=== PATIENT | male | born 1970 ===

== ENCOUNTER 2017-03-25 16:20 | Inpatient (IN) | payer OTHER ==
[2017-03-25 18:14] VITALS: BMI 26.9
--- NOTE | 2017-03-25 19:31 | CP.PCM.HP ---
History of Present Illness - History of Present Illness History of Present Illness: 47 yo male with history of Crohn's Disease, DM2 and Rheumatoid Arthritis was admitted at [facility] on 03/07/2017 diagnosed with Pneumonia presenting with 3 week history of coughing accompanied with fever and chills. Chest CT showed pulmonary nodules on right UL, ML and LL. He was started on IV antibiotics and did well. He was transferred to TCU for continuation of IV Azactam and Zyvox. Patient had CT guided lung biopsy of the right nodule which was read as Focal Organizing Pneumonitis. Present on Admission - Present on Admission Any Indicators Present on Admission: No History of DVT/PE: No History of Uncontrolled Diabetes: No Urinary Catheter: No Decubitus Ulcer Present: No Review of Systems - Review of Systems All systems: reviewed and no additional remarkable complaints except (aside from those mentioned above, 12 point system review were negative by me) Past Patient History - Infectious Disease Hx of Infectious Diseases: None - Tetanus Immunizations Tetanus Immunization: Unknown - Past Medical History & Family History Past Medical History?: Yes Pertinent Family History: Father has DM2 - Past Social History Smoking Status: Light Smoker < 10 Cigarettes Daily Alcohol: None Drugs: Denies Home Situation {Lives}: With Family - CARDIAC Hx Cardiac Disorders: No - PULMONARY Hx Bronchitis: Yes (PULMONARY LESION ) Hx Chronic Obstructive Pulmonary Disease (COPD): No Hx Pneumonia: Yes (NOVEMBER 2015) - NEUROLOGICAL Hx Neurological Disorder: No - HEENT Hx HEENT Problems: Yes Hx Cataracts: Yes (RIGHT EYE) - RENAL Hx Chronic Kidney Disease: No - ENDOCRINE/METABOLIC Hx Endocrine Disorders: Yes Hx Diabetes Mellitus Type 2: Yes - HEMATOLOGICAL/ONCOLOGICAL Hx Anemia: Yes - INTEGUMENTARY Hx Dermatological Problems: Yes Hx Cellulitis: Yes - MUSCULOSKELETAL/RHEUMATOLOGICAL Hx Arthritis: Yes Hx Falls: No Hx Fractures: Yes (LEFT ELBOW-CASTED ONLY) Hx Rheumatoid Arthritis: Yes - GASTROINTESTINAL Hx Crohn's Disease: Yes Hx Gastritis: Yes - GENITOURINARY/GYNECOLOGICAL Hx Genitourinary Disorders: No - PSYCHIATRIC Hx Psychophysiologic Disorder: No Hx Substance Use: No - SURGICAL HISTORY Hx Cholecystectomy: Yes - ANESTHESIA Hx Anesthesia: Yes Hx Anesthesia Reactions: No Hx Malignant Hyperthermia: No Meds Allergies/Adverse Reactions: Allergies Allergy/AdvReac Type Severity Reaction Status Date / Time No Known Allergies Allergy Verified 03/25/17 18:13 Physical Exam - Constitutional Appears: No Acute Distress - Head Exam Head Exam: ATRAUMATIC - Eye Exam Eye Exam: absent: Scleral icterus - ENT Exam ENT Exam: Mucous Membranes Moist - Neck Exam Neck exam: Negative for: Meningismus - Respiratory Exam Respiratory Exam: absent: Rhonchi, Wheezes, Respiratory Distress - Cardiovascular Exam Cardiovascular Exam: REGULAR RHYTHM, +S1, +S2 - GI/Abdominal Exam GI & Abdominal Exam: Soft. absent: Tenderness - Rectal Exam Rectal Exam: Deferred - Extremities Exam Extremities exam: Negative for: calf tenderness, pedal edema - Back Exam Back exam: NORMAL INSPECTION - Neurological Exam Neurological exam: Alert, Oriented x3 - Psychiatric Exam Psychiatric exam: Normal Affect - Skin Skin Exam: Dry, Intact Assessment & Plan (1) Pneumonia Status: Acute Comment: admit in TCU. Azactam 2gm IV q 8hrs. Zyvox 600mg IV q 12hrs. follow up consult with Dr Arana (2) Crohn's disease of colon Status: Chronic Comment: continue Azathioprine 50mg PO daily (3) DM2 (diabetes mellitus, type 2) Status: Acute Comment: Levemir 50 units SC HS. accuchek ACHS. HgA1C, BMP in am. diabetic diet (4) Rheumatoid arthritis Status: Acute Comment: Tramadol 50mg PO TID. on Azathioprine 50mg PO daily. refer to PT/OT for evaluation and management
[2017-03-25] MEDS ORDERED: Promethazine 6.25 MG/5 ML CUP PO SCH (20:00)
[2017-03-25] MEDS ORDERED: Aztreonam 2 Gm Inj IVPB SCH (20:00)
[2017-03-25] MEDS ORDERED: Aztreonam 2 GM in Sodium Chloride 0.9% 100 ML IVPB SCH (20:15)
[2017-03-25] MEDS ORDERED: Patient's Own Med (Linezolid 600 Mg In D5w 300 Ml [Zyvox 600mg/300ml D5w] 600 MG) IVPB SCH (21:00)
[2017-03-25] MEDS: Insulin Detemir 100 Units/ml Inj SC SCH (21:21)
[2017-03-25] MEDS ORDERED: CARISOPRODOL 350 MG PO SCH (22:00)
[2017-03-25] MEDS: Insulin Regular 100 units/ml SC SCH (22:02)
[2017-03-25 22:08] VITALS: RESP 20
[2017-03-25] MEDS: Linezolid 600 mg in D5W 300 ml 600 MG/300 ML BAG IVPB SCH (22:51)
[2017-03-26] MEDS: Promethazine 6.25 MG/5 ML CUP PO SCH ×4 (04:29→21:31)
[2017-03-26] MEDS: Aztreonam 2 GM in Sodium Chloride 0.9% 100 ML IVPB SCH ×3 (04:33→20:16)
[2017-03-26] MEDS: Insulin Regular 100 units/ml SC SCH ×4 (06:51→21:27)
[2017-03-26 07:26] LABS: BASO # 0.1 K/uL (0.0-0.2); BASO % 1.4 % (0.0-2.0); EOS # 0.2 K/uL (0.0-0.7); EOS % 2.6 % (0.0-4.0); HEMOGLOBIN 10.9 g/dL (12.0-18.0); LYMPH # 1.7 K/uL (1.0-4.3); LYMPH % 19.8 % (20.0-40.0); MEAN CELL VOLUME 85.5 fl (80.0-94.0); MEAN CORPUSCULAR HEMOGLOBIN 28.8 pg (27.0-31.0); MEAN CORPUSCULAR HGB CONC 33.6 g/dL (33.0-37.0); MEAN PLATELET VOLUME 7.3 fl (7.2-11.7); MONO # 0.5 K/uL (0.0-0.8); MONO % 6.2 % (0.0-10.0); NEUT # 5.9 K/uL (1.8-7.0); RBC 3.77 Mil/uL (4.40-5.90); RED CELL DISTRIBUTION WIDTH 13.2 % (11.5-14.5); WHITE BLOOD COUNT 8.4 K/uL (4.8-10.8)
[2017-03-26 07:40] LABS: BLOOD UREA NITROGEN 15 mg/dl (9-20); CALCIUM 8.7 mg/dL (8.4-10.2); GFR AFRICAN-AMERICAN > 60; GFR NON-AFRICAN AMERICAN 50
[2017-03-26] MEDS ORDERED: Patient's Own Med (Multivitamin/Iron/Folic Acid [Centrum Complete Multivit Tab] 1 TAB) PO SCH (09:00)
[2017-03-26] MEDS ORDERED: PREGABALIN 75 MG PO SCH (09:00)
[2017-03-26] MEDS ORDERED: VITAMIN B COMPLEX PO SCH (09:00)
[2017-03-26] MEDS ORDERED: NEPAFENAC OD SCH (09:00)
[2017-03-26] MEDS: Pantoprazole 40 mg EC Tab PO SCH (09:31)
[2017-03-26] MEDS: Multivitamin Vitamin B Complex (Nephro-Vite) Tab PO SCH (09:31)
[2017-03-26] MEDS: Linezolid 600 mg in D5W 300 ml 600 MG/300 ML BAG IVPB SCH ×2 (09:32→21:28)
--- NOTE | 2017-03-26 12:36 | CP.PCM.CON ---
History of Present Illness - History of Present Illness History of Present Illness: 47 yo male with history of Crohn's Disease, DM2 and Rheumatoid Arthritis was admitted at [facility] on 03/07/2017 diagnosed with Pneumonia presenting with 3 week history of coughing accompanied with fever and chills. Chest CT showed pulmonary nodules on right UL, ML and LL. He was started on IV antibiotics and did well. He was transferred to TCU for continuation of IV Azactam and Zyvox. Patient had CT guided lung biopsy of the right nodule which was read as Focal Organizing Pneumonitis. Review of Systems - Review of Systems All systems: reviewed and no additional remarkable complaints except - Constitutional Constitutional: As Per HPI - EENT Eyes: absent: As Per HPI, Blind Spots, Blurred Vision, Change in Vision, Decreased Night Vision, Diplopia, Discharge, Dry Eye, Exophthalmos, Floaters, Irritation, Itchy Eyes, Loss of Peripheral Vision, Pain, Photophobia, Requires Corrective Lenses, Sees Flashes, Spots in Vision, Tunnel Vision, Other Visual Disturbances, Loss of Vision, Other Ears: absent: As Per HPI, Decreased Hearing, Ear Discharge, Ear Pain, Tinnitus, Abnormal Hearing, Disequilibrium, Dizziness, Other Nose/Mouth/Throat: absent: As Per HPI, Epistaxis, Nasal Congestion, Nasal Discharge, Nasal Obstruction, Nasal Trauma, Nose Pain, Post Nasal Drip, Sinus Pain, Sinus Pressure, Bleeding Gums, Change in Voice, Dental Pain, Dry Mouth, Dysphagia, Halitosis, Hoarsness, Lip Swelling, Mouth Lesions, Mouth Pain, Odynophagia, Sore Throat, Throat Swelling, Tongue Swelling, Facial Pain, Neck Pain, Neck Mass, Other - Cardiovascular Cardiovascular: absent: As Per HPI, Acrocyanosis, Chest Pain, Chest Pain at Rest , Chest Pain with Activity, Claudication, Diaphoresis, Dyspnea, Dyspnea on Exertion, Edema, Irregular Heart Rhythm, Pain Radiating to Arm/Neck/Jaw, Leg Edema, Leg Ulcers, Lightheadedness, Orthopnea, Palpitations, Paroxysmal Nocturnal Dyspnea, Pedal Edema, Radiating Pain, Rapid Heart Rate, Slow Heart Rate, Syncope, Other - Respiratory Respiratory: As Per HPI, Cough - Gastrointestinal Gastrointestinal: As Per HPI - Genitourinary Genitourinary: absent: As Per HPI, Change in Urinary Stream, Difficulty Urinating, Dysuria, Flank Pain, Hematuria, Pyuria, Nocturia, Urinary Incontinence, Urinary Frequency, Urinary Hesitance, Urinary Urgency, Voiding Freq/Small Amts, Freq UTI, Hx Renal/Bladder Calculi, Hx /Renal Surgery, Bladder Distension, Other - Musculoskeletal Musculoskeletal: absent: As Per HPI, Abnormal Gait, Arthralgias, Atrophy, Back Pain, Deformity, Joint Swelling, Limited Range of Motion, Loss of Height, Muscle Cramps, Muscle Weakness, Myalgias, Neck Pain, Numbness, Radiating Pain into Limb, Stiffness, Tingling, Other - Integumentary Integumentary: absent: As Per HPI, Acne, Alopecia, Bleeding Lesions, Change in Hair, Change in Nails, Change in Pigmentation, Changing Lesions, Dry Skin, Erythema, Furuncle, Hirsutism, Lesions, New Lesions, Non-Healing Lesions, Photosensitivity, Pruritus, Rash, Skin Pain, Skin Ulcer, Sores, Striae, Swelling , Unusual Bruising, Wounds, Jaundice, Other - Neurological Neurological: absent: As Per HPI, Abnormal Gait, Abnormal Hearing, Abnormal Movements, Abnormal Speech, Behavioral Changes, Burning Sensations, Confusion, Convulsions, Disequilibrium, Dizziness, Numbness, Focal Weakness, Frequent Falls , Headaches, Lack of Coordination, Loss of Vision, Memory Loss, Paresthesias, Radicular Pain, Restless Legs, Sensory Deficit, Syncope, Tingling, Tremor, Vertigo, Weakness, Other Visual Disturbances, Other - Psychiatric Psychiatric: absent: As Per HPI, Abnormal Sleep Pattern, Anhedonia, Anxiety, Auditory Hallucinations, Behavioral Changes, Change in Appetite, Change in Libido, Confusion, Depression, Difficulty Concentrating, Hallucinations, Homicidal Ideation, Hopelessness, Irritability, Memory Loss, Mood Swings, Panic Attacks, Paranoia, Suicidal Ideation, Visual Hallucinations, Tactile Hallucinations, Other - Endocrine Endocrine: absent: As Per HPI, Change in Body Appearance, Change in Libido, Cold Intolorance, Deepening of Voice, Excessive Sweating, Fatigue, Flushing, Heat Intolorance, Increase in Ring/Shoe/Hat Size, Palpitations, Polydipsia, Polyphagia, Polyuria, Other - Hematologic/Lymphatic Hematologic: absent: As Per HPI, Easy Bleeding, Easy Bruising, Lymphadenopathy, Other Past Patient History - Infectious Disease Hx of Infectious Diseases: None - Tetanus Immunizations Tetanus Immunization: Unknown - Past Medical History & Family History Past Medical History?: Yes - Past Social History Smoking Status: Light Smoker < 10 Cigarettes Daily - CARDIAC Hx Cardiac Disorders: No Hx Hypertension: Yes - PULMONARY Hx Bronchitis: Yes (PULMONARY LESION ) Hx Chronic Obstructive Pulmonary Disease (COPD): No Hx Pneumonia: Yes (NOVEMBER 2015) - NEUROLOGICAL Hx Neurological Disorder: No - HEENT Hx HEENT Problems: Yes Hx Cataracts: Yes (RIGHT EYE) - RENAL Hx Chronic Kidney Disease: No - ENDOCRINE/METABOLIC Hx Endocrine Disorders: Yes Hx Diabetes Mellitus Type 2: Yes - HEMATOLOGICAL/ONCOLOGICAL Hx AIDS: No Hx Anemia: Yes Hx Blood Transfusions: Yes Hx Blood Transfusion Reaction: No Hx Human Immunodeficiency Virus (HIV): No - INTEGUMENTARY Hx Dermatological Problems: Yes Hx Cellulitis: Yes - MUSCULOSKELETAL/RHEUMATOLOGICAL Hx Arthritis: Yes Hx Falls: No Hx Fractures: Yes (LEFT ELBOW-CASTED ONLY) Hx Rheumatoid Arthritis: Yes - GASTROINTESTINAL Hx Crohn's Disease: Yes Hx Gastritis: Yes - GENITOURINARY/GYNECOLOGICAL Hx Genitourinary Disorders: No - PSYCHIATRIC Hx Psychophysiologic Disorder: No Hx Substance Use: No - SURGICAL HISTORY Hx Cholecystectomy: Yes - ANESTHESIA Hx Anesthesia: Yes Hx Anesthesia Reactions: No Hx Malignant Hyperthermia: No Meds Allergies/Adverse Reactions: Allergies Allergy/AdvReac Type Severity Reaction Status Date / Time No Known Allergies Allergy Verified 03/25/17 18:13 - Medications Medications: Current Medications Azathioprine (Imuran) 50 mg PO DAILY [facility] Last Admin: 03/26/17 09:32 Dose: 50 mg Home Med (Carisoprodol [Soma]) 350 mg PO [facility] Home Med (Nepafenac [Ilevro]) 3 ml OD DAILY [facility] Linezolid (Zyvox 600mg/300ml D5w) 600 mg in 300 mls @ 300 mls/hr IVPB Q12 [facility] Last Admin: 03/26/17 09:32 Dose: 300 mls/hr Aztreonam 2 gm/ Sodium (Chloride) 100 mls @ 100 mls/hr IVPB Q8@0500,1300,2100 [facility] Last Admin: 03/26/17 04:33 Dose: 100 mls/hr Insulin Detemir (Levemir) 40 units SC [facility] Last Admin: 03/25/17 21:21 Dose: Not Given Insulin Human Regular (Humulin R) 0 units SC [facility] PRN Reason: Protocol Last Admin: 03/26/17 12:27 Dose: 2 units Metoprolol Tartrate (Lopressor) 25 mg PO Q6 [facility] Last Admin: 03/26/17 09:31 Dose: 25 mg Pantoprazole Sodium (Protonix Ec Tab) 40 mg PO DAILY [facility] Last Admin: 03/26/17 09:31 Dose: 40 mg Pregabalin (Lyrica) 75 mg PO BID [facility] Last Admin: 03/26/17 09:30 Dose: 75 mg Promethazine HCl (Phenergan Syrup) 6.25 mg PO 0400,1000,1600,2200 [facility] Last Admin: 03/26/17 09:32 Dose: 6.25 mg Tramadol HCl (Ultram) 50 mg PO TID [facility] Last Admin: 03/26/17 09:35 Dose: 50 mg Vitamin B Complex/Vit C/Folic Acid (Nephro-Mark) 1 tab PO DAILY [facility] Last Admin: 03/26/17 09:31 Dose: 1 tab Physical Exam - Constitutional Appears: Non-toxic, Chronically Ill - Head Exam Head Exam: NORMOCEPHALIC - Eye Exam Eye Exam: PERRL. absent: Scleral icterus - ENT Exam ENT Exam: Mucous Membranes Dry, Normal External Ear Exam - Neck Exam Neck exam: Negative for: Lymphadenopathy, Thyromegaly - Respiratory Exam Respiratory Exam: Decreased Breath Sounds, Clear to Auscultation Bilateral - Cardiovascular Exam Cardiovascular Exam: REGULAR RHYTHM, +S1, +S2 - GI/Abdominal Exam GI & Abdominal Exam: Diminished Bowel Sounds, Soft. absent: Tenderness - Rectal Exam Rectal Exam: Deferred - Exam Exam: NORMAL INSPECTION - Extremities Exam Extremities exam: Negative for: calf tenderness, pedal edema - Back Exam Back exam: absent: CVA tenderness (L), CVA tenderness (R) - Neurological Exam Neurological exam: Alert, CN II-XII Intact, Oriented x3, Reflexes Normal Results - Vital Signs Recent Vital Signs: Last Vital Signs Temp 97.7 F 03/26/17 07:57 Pulse 74 03/26/17 09:31 Resp 20 03/26/17 07:57 BP 143/75 03/26/17 09:31 Pulse Ox 99 03/26/17 07:57 - Labs Result Diagrams: 03/26/17 06:00 03/26/17 06:00 Labs: Laboratory Results - last 24 hr 03/25/17 03/26/17 03/26/17 21:08 05:09 06:00 WBC 8.4 RBC 3.77 L Hgb 10.9 L Hct 32.3 L MCV 85.5 MCH 28.8 MCHC 33.6 RDW 13.2 Plt Count 391 MPV 7.3 Neut % (Auto) 70.0 Lymph % (Auto) 19.8 L [place] % (Auto) 6.2 Eos % (Auto) 2.6 Baso % (Auto) 1.4 Neut # 5.9 Lymph # 1.7 [place] # 0.5 Eos # 0.2 Baso # 0.1 Sodium Potassium Chloride Carbon Dioxide Anion Gap BUN Creatinine Est GFR ( Amer) Est GFR (Non-Af Amer) POC Glucose (mg/dL) 138 H 192 H Random Glucose Calcium 03/26/17 03/26/17 06:00 11:04 WBC RBC Hgb Hct MCV MCH MCHC RDW Plt Count MPV Neut % (Auto) Lymph % (Auto) [place] % (Auto) Eos % (Auto) Baso % (Auto) Neut # Lymph # [place] # Eos # Baso # Sodium 137 Potassium 4.1 Chloride 107 Carbon Dioxide 22 Anion Gap 11 BUN 15 Creatinine 1.5 Est GFR ( Amer) > 60 Est GFR (Non-Af Amer) 50 POC Glucose (mg/dL) 217 H Random Glucose 197 H Calcium 8.7 Assessment & Plan (1) DM2 (diabetes mellitus, type 2) Status: Acute (2) Rheumatoid arthritis Status: Acute (3) Diabetes mellitus Status: Acute (4) Fever Status: Acute (5) Pneumonia Status: Acute - Assessment and Plan (Free Text) Assessment: cont rx as per Dr Abrams will cont iv antibiotics
[2017-03-26] MEDS: Insulin Detemir 100 Units/ml Inj SC SCH (21:34)
[2017-03-27] MEDS: Promethazine 6.25 MG/5 ML CUP PO SCH ×4 (04:33→21:50)
[2017-03-27] MEDS: Aztreonam 2 GM in Sodium Chloride 0.9% 100 ML IVPB SCH ×3 (04:35→22:36)
[2017-03-27] MEDS: Insulin Regular 100 units/ml SC SCH ×4 (06:53→21:51)
[2017-03-27] MEDS: Linezolid 600 mg in D5W 300 ml 600 MG/300 ML BAG IVPB SCH ×2 (08:56→21:44)
[2017-03-27] MEDS: Multivitamin Vitamin B Complex (Nephro-Vite) Tab PO SCH (08:57)
[2017-03-27] MEDS: Pantoprazole 40 mg EC Tab PO SCH (08:57)
--- NOTE | 2017-03-27 09:13 | CP.PCM.PN ---
Subjective - Date & Time of Evaluation Date of Evaluation: 03/27/17 Time of Evaluation: 11:30 - Subjective Subjective: Patient seen and evaluated bedside. Feeling better.Denies any SOB ,cough. Hemodynamically stable , afebrile No acute issues overnight. Objective - Vital Signs/Intake and Output Vital Signs (last 24 hours): Temp Pulse Resp BP Pulse Ox 97.4 F L 81 20 135/73 99 03/27/17 08:05 03/27/17 09:05 03/27/17 08:05 03/27/17 09:05 03/27/17 08:05 - Medications Medications: Current Medications Azathioprine (Imuran) 50 mg PO DAILY [facility] Last Admin: 03/27/17 08:57 Dose: 50 mg Home Med (Carisoprodol [Soma]) 350 mg PO HS [facility] Home Med (Nepafenac [Ilevro]) 3 ml OD DAILY [facility] Linezolid (Zyvox 600mg/300ml D5w) 600 mg in 300 mls @ 300 mls/hr IVPB Q12 [facility] Last Admin: 03/27/17 08:56 Dose: 300 mls/hr Aztreonam 2 gm/ Sodium (Chloride) 100 mls @ 100 mls/hr IVPB Q8@0500,1300,2100 [facility] Last Admin: 03/27/17 04:35 Dose: 100 mls/hr Insulin Detemir (Levemir) 40 units SC HS [facility] Last Admin: 03/26/17 21:34 Dose: 40 units Insulin Human Regular (Humulin R) 0 units SC ACHS [facility] PRN Reason: Protocol Last Admin: 03/27/17 06:53 Dose: 1 units Metoprolol Tartrate (Lopressor) 25 mg PO Q6 [facility] Last Admin: 03/27/17 09:05 Dose: 25 mg Pantoprazole Sodium (Protonix Ec Tab) 40 mg PO DAILY [facility] Last Admin: 03/27/17 08:57 Dose: 40 mg Pregabalin (Lyrica) 75 mg PO BID [facility] Last Admin: 03/27/17 09:09 Dose: 75 mg Promethazine HCl (Phenergan Syrup) 6.25 mg PO 0400,1000,1600,2200 [facility] Last Admin: 03/27/17 09:06 Dose: 6.25 mg Tramadol HCl (Ultram) 50 mg PO TID [facility] Last Admin: 03/27/17 09:06 Dose: 50 mg Vitamin B Complex/Vit C/Folic Acid (Nephro-Mark) 1 tab PO DAILY [facility] Last Admin: 03/27/17 08:57 Dose: 1 tab - Labs Labs: 03/26/17 06:00 03/26/17 06:00 - Constitutional Appears: Non-toxic, No Acute Distress - Head Exam Head Exam: ATRAUMATIC, NORMAL INSPECTION, NORMOCEPHALIC - Eye Exam Eye Exam: EOMI, Normal appearance, PERRL Pupil Exam: NORMAL ACCOMODATION - ENT Exam ENT Exam: Mucous Membranes Moist, Normal Exam - Neck Exam Neck Exam: Full ROM, Normal Inspection - Respiratory Exam Respiratory Exam: Clear to Ausculation Bilateral, NORMAL BREATHING PATTERN. absent: Rhonchi, Wheezes, Respiratory Distress - Cardiovascular Exam Cardiovascular Exam: REGULAR RHYTHM, JVD, +S1, +S2. absent: RRR - GI/Abdominal Exam GI & Abdominal Exam: Soft, Normal Bowel Sounds. absent: Distended, Guarding, Rebound - Rectal Exam Rectal Exam: Deferred - Extremities Exam Extremities Exam: Full ROM, Normal Capillary Refill, Normal Inspection. absent : Calf Tenderness, Pedal Edema - Back Exam Back Exam: NORMAL INSPECTION - Neurological Exam Neurological Exam: Alert, Awake, CN II-XII Intact, Oriented x3 - Psychiatric Exam Psychiatric exam: Normal Affect, Normal Mood - Skin Skin Exam: Dry, Intact, Normal Color, Warm Assessment and Plan - Assessment and Plan (Free Text) Assessment: 47 yo male with history of Crohn's Disease, DM2 and Rheumatoid Arthritis was admitted at [facility] on 03/07/2017 diagnosed with Pneumonia presenting with 3 week history of coughing accompanied with fever and chills. Chest CT showed pulmonary nodules on right UL, ML and LL. He was started on IV antibiotics and did well. He was transferred to TCU for continuation of IV Azactam and Zyvox. Patient had CT guided lung biopsy of the right nodule which was read as Focal Organizing Pneumonitis. 1. Pneumonia Acute ID consulted continue Azactam 2gm IV q 8hrs and Zyvox 600mg IV q 12hrs 2. Crohn's disease of colon Chronic,stable continue Azathioprine 50mg PO daily 3. DM2 (diabetes mellitus, type 2) chronic ,uncontrolled Levemir 50 units SC HS. accuchek ACHS,diabetic diet HgbA1c 12 4. Rheumatoid arthritis chronic Tramadol 50mg PO TID, Lyrica on Azathioprine 50mg PO daily. on Soma, Tramadol and Lyrica PT/OT 5. Mild Anemia Most likely chronic monitor 6. HTN controlled on Metoprolol 7. DVT prophylaxis ambulatory in unit
--- NOTE | 2017-03-27 19:02 | CP.PCM.PN ---
Subjective - Date & Time of Evaluation Date of Evaluation: 03/27/17 Time of Evaluation: 08:00 - Subjective Subjective: afebrile no new positive cultures iv rx renewed Objective - Vital Signs/Intake and Output Vital Signs (last 24 hours): Temp Pulse Resp BP Pulse Ox 98.1 F 90 20 106/66 100 03/27/17 16:21 03/27/17 17:14 03/27/17 16:21 03/27/17 17:14 03/27/17 16:21 - Medications Medications: Current Medications Azathioprine (Imuran) 50 mg PO DAILY [facility] Last Admin: 03/27/17 08:57 Dose: 50 mg Home Med (Carisoprodol [Soma]) 350 mg PO HS [facility] Home Med (Nepafenac [Ilevro]) 3 ml OD DAILY [facility] Linezolid (Zyvox 600mg/300ml D5w) 600 mg in 300 mls @ 300 mls/hr IVPB Q12 [facility] Last Admin: 03/27/17 08:56 Dose: 300 mls/hr Aztreonam 2 gm/ Sodium (Chloride) 100 mls @ 100 mls/hr IVPB Q8@0500,1300,2100 [facility] Last Admin: 03/27/17 13:14 Dose: 100 mls/hr Insulin Detemir (Levemir) 40 units SC HS [facility] Last Admin: 03/26/17 21:34 Dose: 40 units Insulin Human Regular (Humulin R) 0 units SC ACHS [facility] PRN Reason: Protocol Last Admin: 03/27/17 17:14 Dose: 2 units Metoprolol Tartrate (Lopressor) 25 mg PO Q6 [facility] Last Admin: 03/27/17 17:14 Dose: 25 mg Pantoprazole Sodium (Protonix Ec Tab) 40 mg PO DAILY [facility] Last Admin: 03/27/17 08:57 Dose: 40 mg Pregabalin (Lyrica) 75 mg PO BID [facility] Last Admin: 03/27/17 17:15 Dose: 75 mg Promethazine HCl (Phenergan Syrup) 6.25 mg PO 0400,1000,1600,2200 [facility] Last Admin: 03/27/17 17:16 Dose: 6.25 mg Tramadol HCl (Ultram) 50 mg PO TID [facility] Last Admin: 03/27/17 17:15 Dose: 50 mg Vitamin B Complex/Vit C/Folic Acid (Nephro-Mark) 1 tab PO DAILY [facility] Last Admin: 03/27/17 08:57 Dose: 1 tab - Labs Labs: 03/26/17 06:00 03/26/17 06:00 Assessment and Plan (1) DM2 (diabetes mellitus, type 2) Status: Acute (2) Rheumatoid arthritis Status: Acute (3) Diabetes mellitus Status: Acute (4) Fever Status: Acute (5) Pneumonia Status: Acute
[2017-03-27] MEDS: Insulin Detemir 100 Units/ml Inj SC SCH (21:42)
[2017-03-28] MEDS: Promethazine 6.25 MG/5 ML CUP PO SCH ×4 (04:07→22:05)
[2017-03-28] MEDS: Aztreonam 2 GM in Sodium Chloride 0.9% 100 ML IVPB SCH ×3 (04:10→20:56)
[2017-03-28] MEDS: Insulin Regular 100 units/ml SC SCH ×4 (07:25→22:12)
[2017-03-28] MEDS: Pantoprazole 40 mg EC Tab PO SCH (09:13)
[2017-03-28] MEDS: Multivitamin Vitamin B Complex (Nephro-Vite) Tab PO SCH (09:13)
[2017-03-28] MEDS: Linezolid 600 mg in D5W 300 ml 600 MG/300 ML BAG IVPB SCH ×2 (09:18→22:02)
[2017-03-28] MEDS: Insulin Detemir 100 Units/ml Inj SC SCH (22:10)
[2017-03-29] MEDS: Promethazine 6.25 MG/5 ML CUP PO SCH ×4 (04:44→21:40)
[2017-03-29] MEDS: Aztreonam 2 GM in Sodium Chloride 0.9% 100 ML IVPB SCH ×3 (04:47→21:44)
[2017-03-29] MEDS: Insulin Regular 100 units/ml SC SCH ×4 (07:41→21:43)
[2017-03-29] MEDS: Multivitamin Vitamin B Complex (Nephro-Vite) Tab PO SCH (08:56)
[2017-03-29] MEDS: Pantoprazole 40 mg EC Tab PO SCH (08:57)
[2017-03-29] MEDS: Linezolid 600 mg in D5W 300 ml 600 MG/300 ML BAG IVPB SCH ×2 (08:57→20:53)
[2017-03-29] MEDS: Insulin Detemir 100 Units/ml Inj SC SCH ×2 (21:41→22:02)
[2017-03-30] MEDS: Promethazine 6.25 MG/5 ML CUP PO SCH ×2 (04:57→09:26)
[2017-03-30] MEDS: Aztreonam 2 GM in Sodium Chloride 0.9% 100 ML IVPB SCH (04:58)
[2017-03-30] MEDS: Insulin Regular 100 units/ml SC SCH (07:06)
[2017-03-30 08:34] VITALS: BP 142/73; PULSE 79; TEMP 97.3; O2SAT 100
[2017-03-30] MEDS: Pantoprazole 40 mg EC Tab PO SCH (09:26)
[2017-03-30] MEDS: Multivitamin Vitamin B Complex (Nephro-Vite) Tab PO SCH (09:26)
[2017-03-30] MEDS: Linezolid 600 mg in D5W 300 ml 600 MG/300 ML BAG IVPB SCH (09:28)
--- NOTE | 2017-03-30 10:30 | CP.PCM.DIS ---
Provider - Provider Date of Admission: 03/25/17 18:15 Attending physician: Ron Abrams MD Consults: Dr Arana Time Spent in preparation of Discharge (in minutes): 35 Diagnosis - Discharge Diagnosis (1) Pneumonia Status: Resolved Comment: completed course of IV Azactam and Zyvox (2) Crohn's disease of colon Status: Chronic Comment: on Azathioprine 50mg PO daily (3) DM2 (diabetes mellitus, type 2) Status: Acute Comment: BS relatively controlled. on Lantus 50 units SC HS and on Novolin R ACHS based on accuchek. HgA1C: 12 (4) Rheumatoid arthritis Status: Acute Comment: on Tramadol, Lyrica and Azathioprine Hospital Course - Lab Results Lab Results: Most Recent Lab Values WBC 8.4 K/uL (4.8-10.8) 03/26/17 06:00 RBC 3.77 Mil/uL (4.40-5.90) L 03/26/17 06:00 Hgb 10.9 g/dL (12.0-18.0) L 03/26/17 06:00 Hct 32.3 % (35.0-51.0) L 03/26/17 06:00 MCV 85.5 fl (80.0-94.0) 03/26/17 06:00 MCH 28.8 pg (27.0-31.0) 03/26/17 06:00 MCHC 33.6 g/dL (33.0-37.0) 03/26/17 06:00 RDW 13.2 % (11.5-14.5) 03/26/17 06:00 Plt Count 391 K/uL (130-400) 03/26/17 06:00 MPV 7.3 fl (7.2-11.7) 03/26/17 06:00 Neut % (Auto) 70.0 % (50.0-75.0) 03/26/17 06:00 Lymph % (Auto) 19.8 % (20.0-40.0) L 03/26/17 06:00 [place] % (Auto) 6.2 % (0.0-10.0) 03/26/17 06:00 Eos % (Auto) 2.6 % (0.0-4.0) 03/26/17 06:00 Baso % (Auto) 1.4 % (0.0-2.0) 03/26/17 06:00 Neut # 5.9 K/uL (1.8-7.0) 03/26/17 06:00 Lymph # 1.7 K/uL (1.0-4.3) 03/26/17 06:00 [place] # 0.5 K/uL (0.0-0.8) 03/26/17 06:00 Eos # 0.2 K/uL (0.0-0.7) 03/26/17 06:00 Baso # 0.1 K/uL (0.0-0.2) 03/26/17 06:00 Sodium 137 mmol/l (132-148) 03/26/17 06:00 Potassium 4.1 MMOL/L (3.6-5.0) 03/26/17 06:00 Chloride 107 mmol/L (98-107) 03/26/17 06:00 Carbon Dioxide 22 mmol/L (22-30) 03/26/17 06:00 Anion Gap 11 (10-20) 03/26/17 06:00 BUN 15 mg/dl (9-20) 03/26/17 06:00 Creatinine 1.5 mg/dL (0.8-1.5) 03/26/17 06:00 Est GFR ( Amer) > 60 03/26/17 06:00 Est GFR (Non-Af Amer) 50 03/26/17 06:00 POC Glucose (mg/dL) 127 mg/dL (65-110) H 03/30/17 06:00 Random Glucose 197 mg/dL (75-110) H 03/26/17 06:00 Calcium 8.7 mg/dL (8.4-10.2) 03/26/17 06:00 - Hospital Course Hospital Course: 47 yo male with history of Crohn's Disease, DM2 and Rheumatoid Arthritis was admitted at [facility] on 03/07/2017 diagnosed with Pneumonia presenting with 3 week history of coughing accompanied with fever and chills. Chest CT showed pulmonary nodules on right UL, ML and LL. CT guided biopsy of the right nodule was read as Focal Organizing Pneumonitis. He was started on IV antibiotics and was transferred to TCU for continuation of IV Azactam and Zyvox. Pt completed the course of IV antibiotics and did well. He is discharged today in stable condition. Discharge Exam - Head Exam Head Exam: ATRAUMATIC, NORMAL INSPECTION, NORMOCEPHALIC - Eye Exam Eye Exam: Normal appearance - ENT Exam ENT Exam: Mucous Membranes Moist - Respiratory Exam Respiratory Exam: NORMAL BREATHING PATTERN. absent: Wheezes, Respiratory Distress - Cardiovascular Exam Cardiovascular Exam: REGULAR RHYTHM, +S1, +S2 - GI/Abdominal Exam GI & Abdominal Exam: Soft. absent: Tenderness - Rectal Exam Rectal Exam: Deferred - Neurological Exam Neurological exam: Alert, Oriented x3 - Psychiatric Exam Psychiatric exam: Normal Affect - Skin Skin Exam: Dry, Intact Discharge Plan - Follow Up Plan Condition: GOOD Disposition: HOME/ ROUTINE Additional Instructions: call Dr Pickett's office for follow up
== END 2017-03-30 12:00 | disposition home or self-care (01) | DRG 194 ==
LOC: H.TCU 18:15
PROC: 3E03329 Introduction of Other Anti-infective into Peripheral Vein, Percutaneous Approach (ICD-10-PCS; principal; 2017-03-25)
PROC: F07M6FZ Therapeutic Exercise Treatment of Musculoskeletal System - Whole Body using Assistive, Adaptive, Supportive or Protective Equipment (ICD-10-PCS; 2017-03-25)
DX: J18.9 Pneumonia, unspecified organism (principal); K50.10 Crohn's disease of large intestine without complications; I10 Essential (primary) hypertension; E11.9 Type 2 diabetes mellitus without complications; D64.9 Anemia, unspecified; H26.9 Unspecified cataract; M06.9 Rheumatoid arthritis, unspecified; Z79.4 Long term (current) use of insulin; Z87.01 Personal history of pneumonia (recurrent); Z87.891 Personal history of nicotine dependence; Z90.49 Acquired absence of other specified parts of digestive tract; J40 Bronchitis, not specified as acute or chronic; K29.70 Gastritis, unspecified, without bleeding; M19.90 Unspecified osteoarthritis, unspecified site